=== PATIENT | female | born 1985 | race Caucasian/White ===

== ENCOUNTER 2024-10-28 06:50 | Day surgery (SDC) | payer BC, SELFPAY ==
[2024-10-26 17:05] VITALS: BMI 32.5
[2024-10-28 07:56] VITALS: BP 121/79; PULSE 68; RESP 16; TEMP 36.1; O2SAT 99
[2024-10-28 08:04] LABS: Urine Pregnancy, HCG Qual. Negative (Negative)
[2024-10-28] MEDS: LACTATED RINGERS 1000ML 1,000 ML 50 ML IV (08:05)
--- NOTE | 2024-10-28 08:21 | EXP.ANES.CKL ---
[facility] Disclaimer: The information contained in this section may have been updated after the patient was seen, as this information can be updated by other users. Medical History (Updated 10/28/24 @ 07:59 by Nany Collier RN) Hypertension PCOS (polycystic ovarian syndrome) Celiac disease Surgical History H/O LEEP Family History (Updated 10/28/24 @ 08:00 by Nany Collier RN) Other Hypertension Social History (Updated 10/28/24 @ 07:59 by Nany Collier RN) Smoking Status: Never smoker alcohol intake: never substance use type: denies use current occupational status: employed Travel in the last 8 weeks: None caffeine: Yes Have you lived/traveled outside [place] in past 30 days?: No Contact w/someone who lives/traveled outside [place] past 30 days?: No Exposure to someone with infectious disease in past 14 days?: No Do you have a fever (greater than 100.4 F or 38 C)?: No Have you tested positive for COVID-19: No Exposed to someone with COVID-19 in past 14 days?: No Do you have a sore throat?: No Do you have a cough?: No Do you have any weakness?: No Are you experiencing any nausea/vomitting?: No Do you have any diarrhea?: No Are you experiencing any unusual bleeding?: No Do you have any muscle aches/pain?: No Do you have any abdominal pain?: No Are you experiencing loss of taste or smell?: No [facility] Anesthesia Checklist Patient Identification Patient Identification: Arm Band Structural Data Admitted From: Home Planned Operative Procedure/s: EGD Consent for Planned Operative Procedure(s) Verified: Yes Verified Documents: Surgical Consent and History and Physical NPO Status Verified Time NPO: 00:00 Additional verifications Anesthesia Reactions: No Airway Assessment Mallampati Score:: Class I C-Spine Mobility Assessed: Yes TMJ Mobility Assessed: Yes Dentition: Good Dentition Neurological Assessment Level of Consciousness: Awake, Alert and Appropriate Anesthesia Plan Anesthesia Risk discussed: Yes Anesthesia Plan: Verified ASA Class: II Anesthesia Type: MAC
--- NOTE | 2024-10-28 08:25 | EXP.HP ---
History of Present Illness *Admission Date: 10/28/24 *Reason for visit:: Dysphagia *History of present illness: Mrs. Moraes is a 39-year-old female who is here for diagnostic upper endoscopy. The patient does have a history of celiac disease that was diagnosed by duodenal biopsies in 2020. She is gluten-free and has done well with that. The patient has recently developed recurrent swallowing difficulty/dysphagia with tablets and dry foods that get hung. She did have esophageal dilation previously. She also had a colonoscopy in 2020. The patient does notice arthralgias if she has gluten exposure and bloating. She is primarily gluten-free. She has had intentional weight loss with semaglutide and otherwise feels well. She reports no heartburn, reflux, bloating or belching. She reports regular bowel function. [facility] Disclaimer: The information contained in this section may have been updated after the patient was seen, as this information can be updated by other users. Medical History (Updated 10/28/24 @ 07:59 by Nany Collier RN) Hypertension PCOS (polycystic ovarian syndrome) Celiac disease Surgical History H/O LEEP Family History (Updated 10/28/24 @ 08:00 by Nany Collier RN) Other Hypertension Social History (Updated 10/28/24 @ 07:59 by Nany Collier RN) Smoking Status: Never smoker alcohol intake: never substance use type: denies use current occupational status: employed Travel in the last 8 weeks: None caffeine: Yes Have you lived/traveled outside [place] in past 30 days?: No Contact w/someone who lives/traveled outside [place] past 30 days?: No Exposure to someone with infectious disease in past 14 days?: No Do you have a fever (greater than 100.4 F or 38 C)?: No Have you tested positive for COVID-19: No Exposed to someone with COVID-19 in past 14 days?: No Do you have a sore throat?: No Do you have a cough?: No Do you have any weakness?: No Are you experiencing any nausea/vomitting?: No Do you have any diarrhea?: No Are you experiencing any unusual bleeding?: No Do you have any muscle aches/pain?: No Do you have any abdominal pain?: No Are you experiencing loss of taste or smell?: No Review of Systems Review of Systems Review of systems (narrative): Negative *Cardiovascular Comments: Negative *Gastrointestinal Comments: Negative *Genitourinary Comments: Negative *Musculoskeletal Comments: Negative *Neurologic Comments: Negative Meds Home Medications and Allergies Home Medications ?Medication ?Instructions ?Recorded ?Confirmed ?Type carvedilol 6.25 mg tablet 6.25 mg PO BID 08/18/24 10/28/24 History cetirizine 10 mg capsule (Zyrtec) 10 mg PO DAILY 08/18/24 10/28/24 History losartan 50 mg tablet 50 mg PO BID 08/18/24 10/28/24 History montelukast 10 mg tablet 10 mg PO DAILY 08/18/24 10/28/24 History norethindrone 1 mg-ethinyl 1 tab PO DAILY 08/18/24 10/28/24 History estradiol 20 mcg (21)-iron 75 mg (7) tablet (June FE 08/03 ()) ondansetron HCl 4 mg tablet 4 mg PO Q8H PRN Nausea 08/18/24 10/28/24 History semaglutide 1 mg/dose (4 mg/3 mL) 5 mg SQ WEEKLY 08/18/24 10/28/24 History subcutaneous pen injector New Prescriptions to Start Prescriptions: Allergies Allergy/AdvReac Type Severity Reaction Status Date / Time No Known Allergies Allergy Verified 10/28/24 07:52 Exam Data for Last 24 hours Vital signs and Labs for Last 24 Hours: Temp Pulse Resp BP Pulse Ox O2 Del Method 97.0 F L 68 16 121/79 99 Room Air 10/28/24 07:56 10/28/24 07:56 10/28/24 07:56 10/28/24 07:56 10/28/24 07:56 10/28/24 07:56 Laboratory Results - last 24 hr 10/28/24 07:51: Urine HCG, Qual Negative I & O for Last 24 hours: Intake & Output 10/25/24 10/26/24 10/27/24 10/28/24 23:59 23:59 23:59 23:59 Weight 184 lb *Routine HEENT Exam Head: Present normocephalic Eye: Present EOMI and PERRL ENT: Present mucous membranes moist *Routine Neck Exam Neck: Present supple *Routine Respiratory Exam Respiratory: Present CTA bilaterally *Routine Cardiovascular Exam Cardiovascular: Present RRR *Routine Abdominal Exam Abdominal: Present soft and normoactive bowel sounds; Absent tenderness *Routine Rectal Exam Rectal:: deferred *Routine Genitalia Exam Genitalia:: deferred *Routine Extremities Exam Extremities: Absent cyanosis, clubbing or edema *Routine Skin Exam Skin: Present warm; Absent rash *Routine Neurological Exam Neurological: Present alert and oriented X3 Assessment and Plan *Assessment and plan (1) Dysphagia: Status: Acute Category: Medical Code(s): R13.10 - Dysphagia, unspecified (2) Celiac disease: Status: Acute Category: Medical Code(s): K90.0 - Celiac disease Plan A/P: 1. Dysphagia with history of celiac disease is the preprocedural diagnosis. The patient will be anesthetized/sedated using MAC sedation. The patient has been seen and examined. Cardiac and lung assessment prior to the examination is stable. Proceed with planned EGD.
[2024-10-28 08:31] VITALS: O2SAT 100
--- NOTE | 2024-10-28 08:35 | P.PCN_ITS ---
[facility] Procedure Note Date: 10/28/24 Time: 08:45 Procedure Note:: Upper Endoscopy Procedure Report: Esophagogastroduodenoscopy with cold biopsies and TTS balloon dilation Endoscopost: Charanjit Fuentes II, MD Referring Physician: Delicia Moreira MD, [id number], [place] [address] Date of Procedure: October 28, 2024 Equipment: Olympus GIF 190 standard upper endoscope Sedation: MAC sedation Indications: Mrs. Moraes is a 39-year-old female who is here for diagnostic/therapeutic upper endoscopy. The patient does have a history of celiac disease that was diagnosed by duodenal biopsies in 2020. She is gluten- free and has done well with that. The patient has recently developed recurrent swallowing difficulty/dysphagia with tablets and dry foods that get hung. She did have esophageal dilation previously. She also had a colonoscopy in 2020. The patient does notice arthralgias if she has gluten exposure and bloating. She is primarily gluten-free. She has had intentional weight loss with semaglutide and otherwise feels well. She reports no heartburn, reflux, blo ating or belching. She reports regular bowel function. The patient recently had lab work with celiac serologies at [facility] yet I have not received this yet. Procedure: Prior to the procedure, a history and physical exam was performed, and patient's medications and allergies were reviewed. The risks, benefits and alternatives of the sedation and procedure were discussed with the patient. All questions were answered and informed consent was obtained. The patient was brought to the procedure room. Patient identification and proposed procedure were verified by the physician and the nurse. The patient was placed in a left lateral decubitus position and the scope was passed under direct vision. Throughout the procedure, the patient's blood pressure, pulse, and oxygen saturations were m onitored continuously. The upper GI endoscopy was accomplished without difficulty. The patient tolerated the procedure well. Findings: The scope was passed directly into the upper esophagus and advanced to the third portion of the duodenum. The post bulbar duodenum, ampulla and duodenal bulb were normal with normal mucosa and conniventes. There was minimal scalloping of the mucosa in the duodenal bulb and directed biopsies were taken to assess for any celiac disease mucosal activity. The scope was withdrawn through a normal pylorus into the stomach. There was moderate bile reflux with mild linear reactive gastropathy of the antrum. The body and fundus of the stomach were grossly normal. Biopsies were taken from the antrum. Upon retroflexion there was a very small sliding hiatal hernia. The scope was then withdrawn into the esophagus. There was no evidence of reflux esophagitis or Santos's. There was no Schatzki's ring, furrowing, corrugation or strictures. There were stronger tertiary contractions and evidence of mild esophageal dysmotility. The entire esophagus was dilated to 60 Albanian/20 mm with a TTS hydrostatic balloon. There was some resistance at the cricopharyngeus. The remainder of the esophageal mucosa was normal. Impression: 1. Cricopharyngeal spasm status post dilation to 20 mm 2. Mild esophageal dysmotility with very small sliding hiatal hernia 3. Bile reflux with mild linear reactive antral gastropathy 4. Minimal mucosal scalloping of duodenal bulb?rule out active celiac disease Plan: I will follow-up the biopsies. 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 We will discuss treatment options.
[2024-10-28 08:50] VITALS: BP 101/54; PULSE 107; RESP 16; TEMP 36.4; O2SAT 96
[2024-10-28 09:00] VITALS: BP 96/58; PULSE 75; RESP 16; O2SAT 100
[2024-10-28 09:10] VITALS: BP 101/61; PULSE 86; RESP 17; O2SAT 100
[2024-10-28 09:20] VITALS: BP 95/68; PULSE 83; RESP 16; O2SAT 100
== END 2024-10-28 09:26 | disposition home or self-care (01) ==
PROVIDERS: PCP Internal Medicine; Visit Provider Internal Medicine Gastroenterology
PROC: 0DJ08ZZ Inspection of Upper Intestinal Tract, Via Natural or Artificial Opening Endoscopic (ICD-10-PCS; CPT 43239; principal; 2024-10-28 08:30)
DX: J39.2 Other diseases of pharynx (principal); K22.4 Dyskinesia of esophagus; K44.9 Diaphragmatic hernia without obstruction or gangrene; K31.9 Disease of stomach and duodenum, unspecified; R13.10 Dysphagia, unspecified; K90.0 Celiac disease
CPT/HCPCS: 43239; 43249; 81025; C1726; J7120